=== PATIENT | female | born 1975 | race Caucasian/White ===

== ENCOUNTER → 2017-03-11 | Outpatient (CLI) | payer BC ==
[2017-03-11 12:31] LABS: Basophils # (A) 0.1 k/uL (0-0.2); Basophils % (A) 1 %; CH 32.1; CHCM 33.7; Eosinophils # (A) 0.2 k/uL (0-0.7); Eosinophils % (A) 3 %; HCT 46.1 % (34.0-46.0); HDW 2.22; HGB 15.1 gm/dL (11.4-16.0); Luc # (Auto) 0.24; Luc % (Auto) 3; Lymphocytes # (A) 2.2 k/uL (1.0-4.8); Lymphocytes % (A) 29 %; MCH 31.3 pg (25.0-35.0); MCHC 32.8 g/dL (31.0-37.0); MCV 95.5 fL (80.0-100.0); Monocytes # (A) 0.4 k/uL (0-1.0); Monocytes % (A) 6 %; Neutrophils # (A) 4.4 k/uL (1.3-7.7); Neutrophils % (A) 58 %; RBC 4.82 m/uL (3.80-5.40); RDW 13.1 % (11.5-15.5); WBC 7.5 k/uL (3.8-10.6); WBC (Perox) 7.27
[2017-03-11 13:32] LABS: C Reactive Protein <5.0 mg/L (<10.0); Rheumatoid Factor, Qnt <9 IU/mL (<12); Uric Acid 3.9 mg/dL (3.7-7.4)
[2017-03-11 15:18] LABS: Erythrocyte Sedimentation Rate 2 mm/hr (0-20)
[2017-03-12 06:22] LABS: Lyme Antibodies Total(IgG/IgM) 0.04 (<0.90)
[2017-03-12 07:35] LABS: ANA w/Reflex to Titer POSITIVE (NEGATIVE)
[2017-03-12 13:14] LABS: HLA B27 NEGATIVE; HLA B27 Comment SEEBELOW
== END | disposition home or self-care (01) ==
LOC: LABWHC1 11:55
PROVIDERS: ATTEND Orthopaedic Surgery
DX: M25.50 Pain in unspecified joint (principal)
CPT/HCPCS: 36415; 84550; 85025; 85652; 86038; 86039; 86140; 86431; 86618; 86812

== ENCOUNTER → 2021-10-25 | Outpatient (CLI) | payer BC ==
--- NOTE | 2021-10-25 09:19 | CT ---
EXAMINATION TYPE: CT abdomen pelvis wo/w con DATE OF EXAM: 10/25/2021 COMPARISON: NONE HISTORY: 46-year-old female R31.29, abnormal urinalysis, hematuria, abnormal cells TECHNIQUE: Contiguous axial scanning of the abdomen and pelvis before and after administration of 100 ml Isovue 300 IV contrast. Delayed images through the kidneys and coronal/sagittal reconstructions performed. CT DLP: 1161 mGycm Automated exposure control for dose reduction was used. FINDINGS: Heart normal size without pericardial effusion. A 4 mm and 3 mm posterior left basilar pulmonary nodu le, axial image 1 and 3. 3 month follow-up CT can reassess and also surveyed the remainder of the kana gs. Cutaneous/subcutaneous nodule left paramedian upper abdomen measuring 7 mm, coronal image 2 and axial image 18 to be correlated with direct inspection. No focal liver lesion or biliary ductal dilatation. Portal venous system is patent. Gallbladder, adrenal glands, spleen, and pancreas within normal limits. No nephrolithiasis. Symmetric uptake and excretion of contrast from both kidneys. No hydronephrosis. No suspicious renal lesion identified. On delayed kidney images. The opacified collecting systems maykel w no abnormal filling defect. The middle third right ureter remains nonopacified and short segments o f the distal left ureter remain nonopacified. No discrete abnormality is seen along their course. Some scattered nonenlarged and borderline size mesenteric lymph nodes, for example, in the left mid a bdomen coronal image 23 and in the right lower quadrant, coronal image 25, measuring up to 7 mm. No dilated small bowel, free fluid, or free air. Normal appendix. Moderate stool burden. Circumferential wall thickening mid sigmoid colon, coronal im age 60. Bladder urine distended. Uterus anteverted. Both ovaries are visualized. No abnormal fluid collection in the pelvis. Right-misael ed pelvic phlebolith. No pelvic lymphadenopathy. Bones: Mild degenerative change of the hips. There is severe hypertrophic facet arthropathy especiall y at L4-L5 with grade 2 anterolisthesis and associated moderate degenerative disc disease. Seems to b e a significant focal spinal canal stenosis at this level. IMPRESSION: 1. NO NEPHROLITHIASIS OR HYDRONEPHROSIS. NO SUSPICIOUS RENAL LESION IDENTIFIED. 2. SOME CIRCUMFERENTIAL WALL THICKENING ALONG THE MID SIGMOID COLON. CORRELATE FOR A NONSPECIFIC MILD COLITIS. 3. A CUTANEOUS/SUBCUTANEOUS 7 MM NODULE ANTERIOR LEFT PARAMEDIAN UPPER ABDOMEN. POSSIBLE SEBACEOUS CY ST OR SMALL FOCUS OF FAT NECROSIS. CORRELATE WITH DIRECT INSPECTION TO EXCLUDE A MORE WORRISOME CUTAN EOUS LESION. 4. A COUPLE 4 MM SMALLER PULMONARY NODULES AT THE LEFT BASE. THREE-MONTH FOLLOW-UP CT CHEST TO REASSE SS AND ALSO TO SURVEY THE REMAINDER OF THE LUNGS. 5. SEVERE FOCAL SPINAL CANAL STENOSIS AT L4-L5 SECONDARY TO A DEGENERATIVE GRADE 2 ANTEROLISTHESIS.
== END | disposition home or self-care (01) ==
LOC: RADCTMAIN 07:59
PROVIDERS: ATTEND Urology
DX: R31.9 Hematuria, unspecified (principal); K63.89 Other specified diseases of intestine; R91.8 Other nonspecific abnormal finding of lung field; R22.2 Localized swelling, mass and lump, trunk
CPT/HCPCS: 74178; Q9967

== ENCOUNTER → 2022-01-27 | Outpatient (CLI) | payer BC ==
--- NOTE | 2022-01-27 09:49 | CT ---
EXAMINATION TYPE: CT chest w con DATE OF EXAM: 01/27/2022 COMPARISON: CT abdomen dated 10/25/2021 HISTORY: Other nonspecific abnormal finding of lung nick CT DLP: 134 mGycm Automated exposure control for dose reduction was used. TECHNIQUE: Multiplanar CT scan of the chest is performed with IV Contrast, patient injected with 100 mL of Isovu e 300. FINDINGS: LUNGS: Unchanged previously described 3 mm and 4 mm faint nodules at the posterior aspect of the left lower lobe as compared to the previous CT scan. Newly seen 4 mm faint nodule at the lateral aspect o f the right lower lobe, not appreciated previously. Another similar faint nodule is seen at the media l aspect of the right lower lobe, stable compared to the previous. Another faint slightly irregular n odule is seen in the right lung measuring 4 mm (image #37, series 4). Other scattered smaller periphe ral, slightly irregular opacities in in both lungs (arrows, series 4). Centrilobular emphysematous ch anges seen in the upper lobes, possibly smoking-related, please correlate clinically. Paraseptal emph ysema is seen in the lung apices bilaterally. Patent trachea and main bronchi. No pleural effusion or pneumothorax. MEDIASTINUM: There are no greater than 1 cm hilar or mediastinal lymph nodes. No gross cardiomegaly. Minimal arterial atherosclerotic calcifications. No pericardial effusion is seen. OTHER: Slightly reduced AP dimension of the thoracic cage. Unremarkable upper abdomen. No aggressive bone lesion. IMPRESSION: Newly seen 4 mm faint nodule in the right lower lobe with scattered pulmonary nodules an d peripheral opacities as described above, likely inflammatory/infectious in etiology however precaut ionary follow-up in 3 months should be considered. Emphysematous pulmonary changes as described above . Further customer response representative consultation can be considered. Other incidental findings as described above.
== END | disposition home or self-care (01) ==
LOC: RADCTMAIN 07:48
PROVIDERS: ATTEND Family Medicine
DX: R91.8 Other nonspecific abnormal finding of lung field (principal); J43.2 Centrilobular emphysema
CPT/HCPCS: 71260; Q9967

== ENCOUNTER → 2022-08-06 | Outpatient (CLI) | payer BC ==
--- NOTE | 2022-08-08 09:56 | CT ---
EXAMINATION TYPE: CT chest w con DATE OF EXAM: 08/06/2022 COMPARISON: Chest CT January 27, 2022 HISTORY: Lung nodules CT DLP: 128.9 mGycm. Automated Exposure Control for Dose Reduction was Utilized. TECHNIQUE: CT scan of the thorax is performed following with IV Contrast, patient injected with 60 m L of Isovue 300. FINDINGS: LUNGS: Mild to moderate underlying emphysematous changes redemonstrated. Scattered small nodules are micronodules again seen bilaterally including focal scarring centrally in the right middle lobe. Stab le 4 x 3 mm scarlike opacity peripheral anterior right upper lung axial image 22 from prior. No new o r enlarging greater than 5 mm pulmonary nodules or masses. No pleural effusion or pneumothorax seen b ilaterally. MEDIASTINUM: There are no greater than 1 cm hilar or mediastinal lymph nodes. No cardiomegaly or pe ricardial effusion is seen. There is pectus excavatum deformity redemonstrated OTHER: No additional significant abnormality is seen. IMPRESSION: Mild to moderate underlying emphysematous change with stable scattered small nodules and/ or nodular scarring strongly favoring postinflammatory etiology. No new or enlarging greater than 5 m m nodules are present.
== END | disposition home or self-care (01) ==
LOC: RADCTMAIN 07:38
PROVIDERS: ATTEND Internal Medicine Critical Care Medicine
DX: J43.9 Emphysema, unspecified (principal); R91.8 Other nonspecific abnormal finding of lung field
CPT/HCPCS: 71260; Q9967

== ENCOUNTER → 2022-11-11 | Outpatient (CLI) | payer BC ==
--- NOTE | 2022-11-11 07:00 | MR ---
EXAMINATION TYPE: MR shoulder RT wo con DATE OF EXAM: 11/11/2022 COMPARISON: None. HISTORY: PAIN IN RIGHT SHOULDER for over one month after throwing injury. Difficulty raising arm over head. TECHNIQUE: Multiplanar, multisequence imaging of the right shoulder is performed without contrast. FINDINGS: Rotator Cuff: Some increased signal distal supraspinatus and infraspinatus tendons with surrounding f luid. No retracted tear. Rotator cuff muscle bulk preserved. Acromioclavicular Joint: [id number] narrowing and mild spurring. Mild capsular hypertrophy. Glenohumeral Joint: Small to moderate size joint effusion. No significant spurring. Labrum: Increased signal superior labrum consistent with tear. Biceps Tendon: The long head of biceps is in normal location within bicipital groove. Increased signa l thought present interarticular portion. Bone marrow signal: No focal abnormal marrow signal is appreciated. Other: Increased fluid signal subdeltoid/subacromial bursa.. IMPRESSION: 1. Tendinosis of the distal supraspinatus and infraspinatus tendons with partial tearing and spread o f glenohumeral joint fluid into the subdeltoid/subacromial bursa. 2. Superior labral tear. Degenerative changes as detailed above. Partial tearing intra-articular port ion left lung to the biceps tendon.
== END | disposition home or self-care (01) ==
LOC: RADMRIMAIN 05:55
PROVIDERS: ATTEND Orthopaedic Surgery
DX: M75.111 Incomplete rotator cuff tear or rupture of right shoulder, not specified as traumatic (principal); M19.011 Primary osteoarthritis, right shoulder; M67.813 Other specified disorders of tendon, right shoulder

== ENCOUNTER → 2023-08-12 | Outpatient (CLI) | payer BC ==
--- NOTE | 2023-08-12 11:21 | CT ---
EXAMINATION TYPE: CT chest w con CT DLP: 106.0 mGycm, Automated exposure control for dose reduction was used. DATE OF EXAM: 08/12/2023 9:58 AM COMPARISON: CT 02/04/2023. CLINICAL INDICATION:Female, 48 years old with history of R91.1 ABNORMA LUNG FIELD; PHH, f/u lung nodu le TECHNIQUE: Multiple axial images were obtained through the chest. Sagittal and coronal reformats were created for review. Contrast used:100 mL of Isovue 300 with IV Contrast (None if empty) Oral contrast used: (None if empty) FINDINGS: LUNGS/ PLEURA: Paraseptal and centrilobular emphysema changes are seen throughout the lungs. Stable p ulmonary nodules no new or enlarging pulmonary nodules. AIRWAY: Patent and unremarkable. HEART: Size within normal limits. MEDIASTINUM: No gross evidence of adenopathy. VASCULATURE: No aortic aneurysm. MUSCULOSKELETAL: No acute osseous abnormalities SOFT TISSUES/LYMPH NODES: Unremarkable. LOWER NECK: No significant findings. UPPER ABDOMEN: No significant findings. IMPRESSION: 1. Stable pulmonary nodules. Follow-up imaging in one year with low-dose lung cancer screening recom mended. 2. Similar paraseptal and centrilobular emphysema.
== END | disposition home or self-care (01) ==
LOC: RADCTMAIN 09:25
PROVIDERS: ATTEND Internal Medicine Critical Care Medicine
DX: J43.2 Centrilobular emphysema (principal); R91.8 Other nonspecific abnormal finding of lung field
CPT/HCPCS: 71260; Q9967

== ENCOUNTER → 2023-12-02 | Outpatient (CLI) | payer BC ==
[2023-12-02 15:26] LABS: T4, Free (Free Thyroxine) 1.34 ng/dL (0.80-1.80)
== END | disposition home or self-care (01) ==
LOC: LABWHC1 11:01
PROVIDERS: ATTEND Family Medicine
DX: E03.9 Hypothyroidism, unspecified (principal)
CPT/HCPCS: 36415; 84439; 84443; 84481

== ENCOUNTER → 2024-03-08 | Outpatient (CLI) | payer BC ==
[2024-03-08 16:18] LABS: HCT 42.2 % (37.2-46.3); HGB 13.9 g/dL (12.0-15.0); MCH 30.2 pg (27.0-32.0); MCHC 32.9 g/dL (32.0-37.0); MCV 91.5 FL (80.0-97.0); Mean Platelet Volume 9.9 FL (9.5-12.2); NRBC Per 100 WBC 0 X 10*3/uL (0.00-0.01); Platelet Count 244 X 10*3/uL (140-440); RBC 4.61 X 10*6/uL (4.10-5.20); RDW 12.7 % (11.5-14.5); WBC 5.69 X 10*3/uL (4.50-10.00)
[2024-03-08 16:38] LABS: Blood Urea Nitrogen 18.9 mg/dL (9.0-27.0); Chloride 105 mmol/L (96-109); Chol/HDL Ratio 2.37 Ratio; Glucose 97 mg/dL (70-110); LDL Cholesterol,Calculated 108.1 mg/dL (0.0-131.0); Potassium 4.3 mmol/L (3.5-5.5); Sodium 140 mmol/L (135-145); VLDL Calculation 12.78 mg/dL (5.00-40.00)
[2024-03-08 16:39] LABS: ALT 19 U/L (8-44); AST 25 U/L (13-35); Albumin 4.3 g/dL (3.8-4.9); Albumin/Globulin Ratio 1.87 Ratio (1.60-3.17); Alkaline Phosphatase 91 U/L (41-126); Calcium 9.5 mg/dL (8.7-10.3); Carbon Dioxide 25.7 mmol/L (21.6-31.8); Globulin 2.3 g/dL (1.6-3.3); T4, Free (Free Thyroxine) 1.46 ng/dL (0.80-1.80); Total Bilirubin 0.8 mg/dL (0.3-1.2); Total Protein 6.6 g/dL (6.2-8.2)
[2024-03-08 16:42] LABS: Estradiol <20.0 pg/mL; Testosterone <10.00 ng/dL (9.01-47.94)
== END | disposition home or self-care (01) ==
LOC: LABWHC1 09:20
PROVIDERS: ATTEND Family Medicine
DX: Z00.00 Encounter for general adult medical examination without abnormal findings (principal); E03.9 Hypothyroidism, unspecified; Z78.0 Asymptomatic menopausal state
CPT/HCPCS: 36415; 80053; 80061; 82306; 82670; 83001; 83036; 84144; 84402; 84403; 84439; 84443; 84481; 85027

== ENCOUNTER → 2024-05-02 | Outpatient (CLI) | payer BC ==
[2024-05-02 16:02] LABS: T4, Free (Free Thyroxine) 1.69 ng/dL (0.80-1.80)
== END | disposition home or self-care (01) ==
LOC: LABWHC1 11:50
PROVIDERS: ATTEND Family Medicine
DX: E03.9 Hypothyroidism, unspecified (principal)
CPT/HCPCS: 36415; 84439; 84443; 84481

== ENCOUNTER → 2024-07-14 | Outpatient (CLI) | payer BC | END | disposition home or self-care (01) | LOC: LABWHC1 08:58 | DX: E03.9 Hypothyroidism, unspecified (principal) | CPT/HCPCS: 36415; 84439; 84443; 84481 ==

== ENCOUNTER → 2024-09-27 | Outpatient (CLI) | payer BC ==
--- NOTE | 2024-09-27 10:44 | CT ---
EXAMINATION TYPE: CT chest w con CT DLP: 126.10 mGycm, Automated exposure control for dose reduction was used. DATE OF EXAM: 09/27/2024 9:04 AM COMPARISON: Multiple CT chest with most recent 08/12/2023. CLINICAL INDICATION:Female, 49 years old with history of R91.8 ABN IMAGING; PHH, Abnormal findings delfino ng nick TECHNIQUE: Multiple axial images were obtained through the chest following the administration of 100 cc of Isovue 300. . Coronal and sagittal reformats reviewed. FINDINGS: LUNGS/ PLEURA: Paraseptal and centrilobular emphysema changes are seen throughout the lungs. 3 stable pulmonary nodules including an peripheral anterior right upper lobe 3.7 mm nodular density (series 4 , image 20). Stable 3.5 mm left lower lobe pulmonary nodule (series 4, image 45). Stable right mid delfino ng peripheral 2.1 mm pulmonary nodule (series 4, image 32). Development of new left apical 4.4 mm pul monary nodular density (series 4, image 12). New right upper lobe posteriorly 5.1 mm nodular density (series 4, image 24). New right lower lobe 5.5 mm pulmonary nodular density (series 4, image 42). New right lower lobe 5.4 mm pulmonary nodular density (series 4 image 33). Linear scarring within the me dial aspect of the right middle lobe. AIRWAY: Patent and unremarkable. HEART: Size within normal limits. No pericardial effusion MEDIASTINUM: No evidence of adenopathy. VASCULATURE: No aortic aneurysm. MUSCULOSKELETAL: No acute osseous abnormalities SOFT TISSUES/LYMPH NODES: Unremarkable. LOWER NECK: No significant findings. UPPER ABDOMEN: No significant findings. IMPRESSION: 1. Few new pulmonary nodular densities from prior examination measuring up to 5.5 mm with other stab le pulmonary nodules. Follow-up CT chest in 6 months is recommended. 2. Mild paraseptal and centrilobular emphysema redemonstrated. [facility], , 09/27/2024 10:10 AM
== END | disposition home or self-care (01) ==
LOC: RADCTMAIN 08:26
PROVIDERS: ATTEND Internal Medicine Critical Care Medicine
CPT/HCPCS: 71260

== ENCOUNTER → 2024-10-07 | Outpatient (CLI) | payer BC ==
[2024-10-07 15:46] LABS: T4, Free (Free Thyroxine) 1.21 ng/dL (0.80-1.80)
== END | disposition home or self-care (01) ==
LOC: LABWHC1 09:43
PROVIDERS: ATTEND Internal Medicine Endocrinology, Diabetes & Metabolism
DX: E03.8 Other specified hypothyroidism (principal)
CPT/HCPCS: 36415; 84439; 84443; 84481

== ENCOUNTER → 2024-12-05 | Outpatient (CLI) | payer BC ==
[2024-12-05 15:46] LABS: T4, Free (Free Thyroxine) 1.22 ng/dL (0.80-1.80)
== END | disposition home or self-care (01) ==
LOC: LABWHC1 11:31
PROVIDERS: ATTEND Family Medicine
DX: E03.9 Hypothyroidism, unspecified (principal)
CPT/HCPCS: 36415; 84439; 84443; 84481

== ENCOUNTER → 2025-02-01 | Outpatient (CLI) | payer BC ==
[2025-02-01 15:58] LABS: HCT 41.9 % (37.2-46.3); HGB 14.3 g/dL (12.0-15.0); MCH 31.5 pg (27.0-32.0); MCHC 34.1 g/dL (32.0-37.0); MCV 92.3 FL (80.0-97.0); Mean Platelet Volume 10.5 FL (9.5-12.2); NRBC Per 100 WBC 0 X 10*3/uL (0.00-0.01); Platelet Count 256 X 10*3/uL (140-440); RBC 4.54 X 10*6/uL (4.10-5.20); WBC 6.33 X 10*3/uL (4.50-10.00)
[2025-02-01 16:22] LABS: ALT 18 U/L (8-44); AST 22 U/L (13-35); Albumin 4.3 g/dL (3.8-4.9); Albumin/Globulin Ratio 1.87 Ratio (1.60-3.17); Alkaline Phosphatase 97 U/L (41-126); BUN/Creat Ratio 15.29 Ratio (12.00-20.00); Blood Urea Nitrogen 10.7 mg/dL (9.0-27.0); Calcium 9.6 mg/dL (8.7-10.3); Carbon Dioxide 26.8 mmol/L (21.6-31.8); Chloride 108 mmol/L (96-109); Globulin 2.3 g/dL (1.6-3.3); Glucose 98 mg/dL (70-110); Lipase 41 U/L (14-63); Potassium 4.7 mmol/L (3.5-5.5); Sodium 144 mmol/L (135-145); T4, Free (Free Thyroxine) 1.46 ng/dL (0.80-1.80); Total Bilirubin 0.5 mg/dL (0.3-1.2); Total Protein 6.6 g/dL (6.2-8.2)
[2025-02-01 18:26] LABS: Appearance,Urine Clear (Clear); Bilirubin,Urine Negative (Negative); Blood,Urine Negative (Negative); Color,Urine Yellow (Yellow); Ketones,Urine Trace (Negative); Nitrite,Urine Negative (Negative); PH, Urine 7.5; Urobilinogen,Urine 0.2 E.U./DL
[2025-02-01 18:33] LABS: Bacteria,Urine None Seen (None Seen)
== END | disposition home or self-care (01) ==
LOC: LABWHC1 11:10
PROVIDERS: ATTEND Family Medicine
DX: Z00.00 Encounter for general adult medical examination without abnormal findings (principal); E03.9 Hypothyroidism, unspecified
CPT/HCPCS: 36415; 80053; 81001; 82306; 83036; 83690; 84439; 84443; 84481; 85027

== ENCOUNTER → 2025-04-06 | Outpatient (CLI) | payer BC ==
--- NOTE | 2025-04-06 14:19 | CT ---
EXAMINATION TYPE: CT chest w con CT DLP: 117.2 mGycm, Automated exposure control for dose reduction was used. DATE OF EXAM: 04/06/2025 11:36 AM COMPARISON: Multiple CTs of the chest with most recent on 09/27/2024. CLINICAL INDICATION:Female, 49 years old with history of R91.8 OTHER NONSPECIFIC ABNORMAL FINDING OF LUNG F; PHH, Lung nodule. TECHNIQUE: Multiple axial images were obtained through the chest following the administration of 100 cc of Isovue 300. . Coronal and sagittal reformats reviewed. FINDINGS: LUNGS/ PLEURA: Paraseptal and centrilobular emphysema changes are seen throughout the lungs. Stable p eripheral anterior right upper lobe 3.7 mm nodular density (series 4, image 21). Stable right middle lobe lateral 2.1 mm pulmonary nodule. Previously seen left apical pulmonary nodule is no longer visua lized and has resolved. Previously seen left lower lobe 3.5 mm nodules not visualized. Previously see n right upper lobe 5.5 mm pulmonary nodules no longer visualized. Development of new left apical 4.4 mm pulmonary nodular density (series 4, image 12). New right upper lobe posteriorly 5.1 mm nodular de nsity (series 4, image 24). New right lower lobe 5.5 mm pulmonary nodular density (series previously seen right lower lobe 5.4 mm pulmonary nodule is no longer visualized. No new or enlarging pulmonary nodules. Linear scarring within the medial aspect of the right middle lobe. AIRWAY: Patent and unremarkable. HEART: Size within normal limits. No pericardial effusion. No significant coronary arterial calcifica tions. MEDIASTINUM: No evidence of adenopathy. VASCULATURE: No aortic aneurysm. MUSCULOSKELETAL: No acute osseous abnormalities SOFT TISSUES/LYMPH NODES: Unremarkable. LOWER NECK: No significant findings. UPPER ABDOMEN: No significant findings. IMPRESSION: 1. Few stable pulmonary nodules measuring less than 4 mm from prior examination. Additional previous ly seen nodules no longer visualized. Likely result of infectious/inflammatory nodules. No new or enl arging pulmonary nodule. No follow-up required. 2. Mild emphysematous changes redemonstrated. [facility], , 04/06/2025 2:16 PM
== END | disposition home or self-care (01) ==
LOC: RADCTMAIN 11:07
PROVIDERS: ATTEND Internal Medicine Critical Care Medicine
DX: R91.8 Other nonspecific abnormal finding of lung field (principal); J43.2 Centrilobular emphysema
CPT/HCPCS: 71260; Q9967

== ENCOUNTER → 2025-04-13 | Outpatient (CLI) | payer BC ==
[2025-04-13 15:53] LABS: LDL Cholesterol,Calculated 103.3 mg/dL (0.0-131.0); T4, Free (Free Thyroxine) 1.31 ng/dL (0.80-1.80); VLDL Calculation 11.06 mg/dL (5.00-40.00)
== END | disposition home or self-care (01) ==
LOC: LABWHC1 09:07
PROVIDERS: ATTEND Family Medicine
DX: E03.9 Hypothyroidism, unspecified (principal); E78.00 Pure hypercholesterolemia, unspecified
CPT/HCPCS: 36415; 80061; 84439; 84443; 84481

== ENCOUNTER → 2025-06-21 | Outpatient (CLI) | payer BC ==
[2025-06-21 16:13] LABS: T4, Free (Free Thyroxine) 1.12 ng/dL (0.80-1.80)
== END | disposition home or self-care (01) ==
LOC: LABWHC1 09:05
PROVIDERS: ATTEND Internal Medicine Endocrinology, Diabetes & Metabolism
DX: E03.8 Other specified hypothyroidism (principal)
CPT/HCPCS: 36415; 84439; 84443